=== PATIENT | male | born 1980 | race Caucasian/White ===

== ENCOUNTER → 2022-03-15 | Outpatient (CLI) | payer OTHER ==
[~2022-03-15] MED LIST: CEPH250REC PO; CLAR10CA3 PO; FLON1SPR; FLUT11IN INH; HYCE0.1S PO; IBUP1TAB7 PO; OMEP40CA4 PO; PERCOCET PO; SUMA100T2 PO
== END ==
LOC: M RAD 09:08
PROVIDERS: ATTEND Nurse Practitioner Family
DX: R42 Dizziness and giddiness (principal); G43.909 Migraine, unspecified, not intractable, without status migrainosus; R25.1 Tremor, unspecified; R43.8 Other disturbances of smell and taste

== ENCOUNTER → 2022-04-26 | Outpatient (CLI) | payer OTHER | LOC: M PLARAD 13:13 | PROVIDERS: ATTEND Ophthalmology | DX: H53.2 Diplopia (principal) ==

== ENCOUNTER → 2023-02-21 | Outpatient (CLI) | payer OTHER ==
[~2023-02-21] MED LIST changes: +PROHANCE 279.3MG/ML 5ML VIAL ONE
== END ==
LOC: M PLAIMG 08:55
PROVIDERS: ATTEND Physical Medicine & Rehabilitation
DX: M25.552 Pain in left hip (principal)
CPT/HCPCS: 73723; A9576